=== PATIENT | female | born 1970 | race Caucasian/White ===

== ENCOUNTER 2016-04-27 11:35 | Observation (INO) | payer BC ==
[~2016-04-27] VITALS: Ht 157.5 cm; Wt 68.0 kg
[2016-04-27 13:08] LABS: HEMOGLOBIN 13.6 gm/dl (12.3-15.3); RED BLOOD COUNT 4.35 M/UL (4.00-5.10); WHITE BLOOD COUNT 21.6 K/UL (4.5-11.0)
[2016-04-27 13:23] LABS: BUN/CREATININE RATIO 13 (0-10)
[2016-04-27] MEDS ORDERED: PRILOSEC OTC20 MG PO (17:20)
[2016-04-27] MEDS ORDERED: PROZAC20 MG PO (17:21)
[2016-04-27] MEDS ORDERED: LIPITOR TAB 1010 MG PO (17:21)
[2016-04-27] MEDS ORDERED: BUTALB-ACETAMI1 EAC1 PO (17:22)
[2016-04-28 04:22] LABS: HEMOGLOBIN 12.4 gm/dl (12.3-15.3); RED BLOOD COUNT 4.01 M/UL (4.00-5.10); WHITE BLOOD COUNT 8.7 K/UL (4.5-11.0)
[2016-04-28] MEDS ORDERED: ZOFRAN8 MG PO (18:30)
[2016-04-28] MEDS ORDERED: NAPROSYN500 MG PO (18:31)
[2016-04-28] MEDS ORDERED: PERCOCET 5-3251 EACH PO (18:32)
== END 2016-04-28 19:05 | disposition home or self-care (01) ==
LOC: ER1 11:35 → ZEROF 16:00 → CCU 16:00
PROVIDERS: Physician Assistant; ADMIT Obstetrics & Gynecology
PROC: 0UB04ZZ Excision of Right Ovary, Percutaneous Endoscopic Approach (ICD-10-PCS; principal; 2016-04-27)
DX: D27.0 Benign neoplasm of right ovary (principal); G43.909 Migraine, unspecified, not intractable, without status migrainosus; Z88.6 Allergy status to analgesic agent; Z79.899 Other long term (current) drug therapy; Z98.890 Other specified postprocedural states
CPT/HCPCS: 36415; 80053; 81001; 82962; 84703; 85025; 85027; 96365; 96366; 96374; 96375; 96376; 99284; G0378; J1100; J1200; J1885; J1956; J2250; J2270; J2405; J2550; J2710; J2795; J3010; J7050; J7120; Q9962

== ENCOUNTER → 2016-07-22 | Outpatient (CLI) | payer BC ==
[~2016-07-22] MED LIST: BUTALB-ACETAMI1 EAC1 PO; COLACE 100MG C100 MG PO; LIPITOR TAB 1010 MG PO; MELATONIN10 MG PO; MULTIVITAMINS1 EAC1 PO; NAPROSYN500 MG PO; PERCOCET 5-3251 EACH PO; PRILOSEC OTC20 MG PO; PROZAC20 MG PO; ZOFRAN8 MG PO; ZYRTEC10 M3 PO
[2016-07-22 10:03] LABS: HEMOGLOBIN 14.6 gm/dl (12.3-15.3); RED BLOOD COUNT 4.73 M/UL (4.00-5.10); WHITE BLOOD COUNT 9.3 K/UL (4.5-11.0)
== END ==
LOC: OPSV2 09:00
PROVIDERS: Obstetrics & Gynecology
DX: Z01.812 Encounter for preprocedural laboratory examination (principal); R10.2 Pelvic and perineal pain
CPT/HCPCS: 81001; 85025

== ENCOUNTER 2016-07-26 06:43 | Day surgery (SDC) | payer BC ==
[~2016-07-26] VITALS: Ht 157.5 cm; Wt 63.5 kg
[~2016-07-26 06:43] MED LIST changes: -COLACE 100MG C100 MG PO; -MELATONIN10 MG PO; -MULTIVITAMINS1 EAC1 PO; -ZYRTEC10 M3 PO
[2016-07-26] MEDS ORDERED: ZYRTEC10 M3 PO (07:39)
[2016-07-26] MEDS ORDERED: MELATONIN10 MG PO (07:40)
[2016-07-26] MEDS ORDERED: MULTIVITAMINS1 EAC1 PO (07:40)
[2016-07-27 04:32] LABS: HEMOGLOBIN 11.4 gm/dl (12.3-15.3)
[2016-07-27] MEDS ORDERED: COLACE 100MG C100 MG PO (09:29)
== END 2016-07-27 08:58 | disposition home or self-care (01) ==
LOC: OR 06:43 → OB 11:22 → OR 07-27 08:58
PROVIDERS: Obstetrics & Gynecology
PROC: 0UTC4ZZ Resection of Cervix, Percutaneous Endoscopic Approach (ICD-10-PCS; 2016-07-26)
PROC: 0UT04ZZ Resection of Right Ovary, Percutaneous Endoscopic Approach (ICD-10-PCS; 2016-07-26)
PROC: 0UT64ZZ Resection of Left Fallopian Tube, Percutaneous Endoscopic Approach (ICD-10-PCS; 2016-07-26)
PROC: 0UT94ZZ Resection of Uterus, Percutaneous Endoscopic Approach (ICD-10-PCS; principal; 2016-07-26 08:00)
DX: D25.9 Leiomyoma of uterus, unspecified (principal); N87.9 Dysplasia of cervix uteri, unspecified; K21.9 Gastro-esophageal reflux disease without esophagitis; Q43.0 Meckel's diverticulum (displaced) (hypertrophic); Z88.6 Allergy status to analgesic agent; Z86.718 Personal history of other venous thrombosis and embolism; Z79.899 Other long term (current) drug therapy; Z90.49 Acquired absence of other specified parts of digestive tract
CPT/HCPCS: 36415; 85014; 85018; J0690; J1100; J1650; J1885; J2250; J2270; J2405; J2710; J2795; J3010; J7120

== ENCOUNTER → 2021-02-05 | Outpatient (CLI) | payer BC ==
[~2021-02-05] MED LIST changes: +COLACE 100MG C100 MG PO; +MELATONIN10 MG PO; +MULTIVITAMINS1 EAC1 PO; +ZYRTEC10 M3 PO
== END ==
LOC: KOH-I 09:13
DX: Z01.818 Encounter for other preprocedural examination (principal); M50.123 Cervical disc disorder at C6-C7 level with radiculopathy
CPT/HCPCS: 72125